=== PATIENT | male | born 1940 | race Caucasian/White ===

== ENCOUNTER → 2017-05-23 | Outpatient (CLI) | payer MEDICARE, BC | LOC: OPSV 12:48 | DX: E11.51 Type 2 diabetes mellitus with diabetic peripheral angiopathy without gangrene (principal); L97.422 Non-pressure chronic ulcer of left heel and midfoot with fat layer exposed; M79.672 Pain in left foot | CPT/HCPCS: 15271; Q4133 ==

== ENCOUNTER → 2021-01-25 | Outpatient (CLI) | payer MEDICARE, BC | LOC: EXRD 13:43 | DX: M06.9 Rheumatoid arthritis, unspecified (principal); M19.042 Primary osteoarthritis, left hand; M19.041 Primary osteoarthritis, right hand | CPT/HCPCS: 73130 ==